=== PATIENT | female | born 1945 | race Caucasian/White ===

== ENCOUNTER 2016-12-21 09:48 | Emergency (ER) | payer OTHER ==
[~2016-12-21] VITALS: Ht 154.9 cm; Wt 52.2 kg
[2016-12-21 09:55] VITALS: BP 131/79
--- NOTE | 2016-12-21 10:08 | Emergency Room Report ---
History of Present Illness General Chief Complaint: Upper Extremity Injury Source: Patient Present Illness HPI Patient presents with complaints of right hand injury Essentially question injury on a door At approximately 7:30 this morning Patient has minimal pain however there was some ecchymosis at the case and diffusely to the middle finger Patient is able to flex and extend the finger Denies any wrist pain denies any elbow pain Allergies: Coded Allergies: CODEINE (Verified Allergy, Severe, 12/21/16) nausea rxn Patient History Past Medical History: see triage record Pertinent Family History: none Last Menstrual Period: na Reviewed Nursing Documentation: PMH: Agreed, PSxH: Agreed Nursing Documentation-PM Past Medical History: No History, Except For Hx Cardiac Problems: Yes - mvp repair Review of Systems All Other Systems: negative except mentioned in HPI Physical Exam Vital Signs Date Time Temp Pulse Resp B/P (MAP) Pulse Ox O2 Delivery O2 Flow Rate FiO2 12/21/16 09:55 97.7 83 18 131/79 98 Room Air Sp02 EP Interpretation: reviewed, normal General Appearance: well appearing, no apparent distress Head: normocephalic, atraumatic Eyes: bilateral eye PERRL, bilateral eye EOMI ENT: normal pharynx Neck: full range of motion, supple Musculoskeletal: swelling - With mild associated ecchymosis involving the right middle finger there is also some discoloration to the medial aspect of the index finger and radial aspect of the ring finger, the range of motion is appreciated, Neurologic: alert, oriented x3, responsive Skin: other - As above Lymphatic: no adenopathy Procedures Splinting Splinting : Consent: Verbal Location: right middle finger Hand-Made Type: finger splint Pre-Proc Neuro Vasc Exam: normal Post-Proc Neuro Vasc Exam: normal Patient Tolerated: Well Complications: None Medical Decision Making Diagnostic Impression: Primary Impression: Finger contusion ER Course Patient's x-ray imaging does not reveal any obvious acute fracture Given the swelling and appearance however patient did have a finger splint applied She will have limited use of her right hand for the next 2-3 days Followup with worker's comp clinic appropriately and return with any changes Other X-Ray Diagnostic Results Other X-Ray Diagnostic Results : X-Ray ordered: right hand # of Views/Limited Vs Complete: 3 View Indication: Pain EP Interpretation: Yes Interpretation: no dislocation, no soft tissue swelling, no fractures Impression: No acute disease Electronically Signed by: Abbey Muhammad DO Last Vital Signs Date Time Temp Pulse Resp B/P (MAP) Pulse Ox O2 Delivery O2 Flow Rate FiO2 12/21/16 09:55 97.7 83 18 131/79 98 Room Air Status: improved Disposition: HOME, SELF-CARE Condition: Improved Additional Instructions: Patient is provided with the discharge instructions notified to follow up with primary doctor in the next 2-3 days otherwise return to the er with any worsening symptoms. Please note that this report is being documented using [employer] technology. This can lead to erroneous entry secondary to incorrect interpretation by the dictating instrument. ABBEY MUHAMMAD D.O. Dec 21, 2016 10:08
--- NOTE | 2016-12-21 10:32 | Diagnostic Imaging Report ---
Indication: TRAUMA Comparison: None. Findings: 3 views of the right hand show no acute fractures or dislocations. Bony mineralization is decreased. No bony destructive lesions are identified. Joint spaces are intact. There are no erosions. Soft tissues are unremarkable. Impression: No acute fracture or dislocation of the right hand
[2016-12-21 10:53] VITALS: BP 131/79
== END 2016-12-21 10:53 | disposition home or self-care (01) ==
LOC: EMR 10:22
DX: S60.031A Contusion of right middle finger without damage to nail, initial encounter (principal); W22.8XXA Striking against or struck by other objects, initial encounter; Y92.89 Other specified places as the place of occurrence of the external cause; Z88.6 Allergy status to analgesic agent
CPT/HCPCS: 99283